=== PATIENT | female | born 1975 | race African-American/Black ===

== ENCOUNTER 2016-09-21 01:08 | Emergency (ER) | payer OTHER ==
[~2016-09-21] VITALS: Ht 160 cm; Wt 131.5 kg
[~2016-09-21 01:08] MED LIST: METO25TA9 PO; ONDA4TAB10 PO; TRAM-48 PO
[2016-09-21 01:15] VITALS: BP 145/90
--- NOTE | 2016-09-21 01:35 | PHYS DOC ---
Past Medical History Past Medical History: Hypertension, Other Additional Past Medical Histor: pseudo-tumor cerebri Past Surgical History: Cholecystectomy, Alcohol Use: None Drug Use: None Adult General Chief Complaint Chief Complaint: SORE THROAT HPI HPI Patient is a 41 year old female who presents with 2 weeks of sore throat; initially with dry cough, fever and chills, and nasal congestion. States most of her symptoms have improved, but she has lingering sore throat. She denies nausea or vomiting, difficulty breathing or swallowing, voice changes. Review of Systems Review of Systems Constitutional: Denies fever or chills [] Eyes: Denies change in visual acuity, redness, or eye pain [] HENT: Denies nasal congestion [] Respiratory: Denies cough or shortness of breath [] Cardiovascular: No additional information not addressed in HPI [] GI: Denies abdominal pain, nausea, vomiting, bloody stools or diarrhea [] : Denies dysuria or hematuria [] Musculoskeletal: Denies back pain or joint pain [] Integument: Denies rash or skin lesions [] Neurologic: Denies headache, focal weakness or sensory changes [] Endocrine: Denies polyuria or polydipsia [] Current Medications Current Medications Current Medications Medications (Trade) Dose Ordered Sig/Sarahi Start Time Stop Time Status Last Admin Dose Admin Dexamethasone (Decadron) 8 mg 1X ONCE 09/21/16 02:15 09/21/16 02:15 DC 09/21/16 02:06 8 MG Allergies Allergies Allergies Coded Allergies Type Severity Reaction Last Updated Verified banana Allergy Intermediate 10/31/13 No metoprolol Allergy Intermediate HIVES 09/21/16 Yes tomato Allergy Intermediate 10/31/13 No tree nut Allergy Intermediate 10/31/13 No Physical Exam Physical Exam Constitutional: Well developed, well nourished, no acute distress, non-toxic appearance. [] HENT: Normocephalic, atraumatic, bilateral TMs normal, oropharynx moist, no oral exudates, nose normal. [] Eyes: PERRLA, EOMI, conjunctiva normal, no discharge. [] Neck: Normal range of motion, no tenderness, supple, no stridor. [] Cardiovascular:Heart rate regular rhythm [] Lungs & Thorax: Bilateral breath sounds clear to auscultation [] Abdomen: Bowel sounds normal, soft, no tenderness. [] Skin: Warm, dry, no erythema, no rash. [] Back: Normal ROM. [] Extremities: No tenderness, ROM intact, no edema. [] Neurologic: Alert and oriented X 3, normal motor function, normal sensory function, no focal deficits noted. [] Psychologic: Affect normal, judgement normal, mood normal. [] Current Patient Data Vital Signs Vital Signs Date Time Temp Pulse Resp B/P (MAP) Pulse Ox O2 Delivery O2 Flow Rate FiO2 09/21/16 01:15 98.9 97 20 145/90 (108) 97 Room Air 98.9 Course & Med Decision Making Course & Med Decision Making Discussed supportive care. Return precautions given. She understands and agrees with plan. Dragon Disclaimer Dragon Disclaimer This electronic medical record was generated, in whole or in part, using a voice recognition dictation system. Departure Departure Impression: Primary Impression: Viral pharyngitis Disposition: HOME, SELF-CARE Condition: STABLE Referrals: ANASTASIIA FUNG MD (PCP) Patient Instructions: Viral and Bacterial Pharyngitis, [id number] Additional Instructions: Take Tylenol or ibuprofen as needed for pain. Drink liquids to stay hydrated. Follow-up with your primary care doctor. Return for any concerns. Ana BANKS MD Sep 21, 2016 01:35
[2016-09-21] MEDS ORDERED: DEXAMETHASONE 4 MG TABLET PO ONE (02:15)
== END 2016-09-21 02:13 | disposition home or self-care (01) ==
LOC: ER 01:08
DX: J02.8 Acute pharyngitis due to other specified organisms (principal); B97.89 Other viral agents as the cause of diseases classified elsewhere; I10 Essential (primary) hypertension; Z90.49 Acquired absence of other specified parts of digestive tract; Z91.018 Allergy to other foods; Z88.8 Allergy status to other drugs, medicaments and biological substances
CPT/HCPCS: 99282; J8540

== ENCOUNTER 2017-02-07 20:20 | Emergency (ER) | payer OTHER ==
[~2017-02-07] VITALS: Ht 170.2 cm; Wt 108.9 kg
[~2017-02-07 20:20] MED LIST changes: +METO-239 PO; -METO25TA9 PO
[2017-02-07] MEDS ORDERED: MECLIZINE HCL 12.5 MG TABLET. PO ONE (21:30)
[2017-02-07 21:38] LABS: BASO # 0.1 x10^3/uL (0.0-0.2); BASO % 1 % (0-3); EOS % 2 % (0-3); HEMATOCRIT 37.1 % (36.0-47.0); HEMOGLOBIN 11.8 g/dL (12.0-15.5); LYMPH # 2.6 x10^3/uL (1.0-4.8); LYMPH % 32 % (24-48); MEAN CORPUSCULAR HEMOGLOBIN 23 pg (25-35); MEAN CORPUSCULAR HGB CONC 32 g/dL (31-37); MEAN CORPUSCULAR VOLUME 71 fL (79-100); MONO % 6 % (0-9); NEUT % 60 % (31-73); PLATELET COUNT 344 x10^3/uL (140-400); RED BLOOD COUNT 5.25 x10^6/uL (3.50-5.40); RED CELL DISTRIBUTION WIDTH 18.6 % (11.5-14.5); WHITE BLOOD COUNT 8.2 x10^3/uL (4.0-11.0)
[2017-02-07 21:49] LABS: CALCIUM 8.8 mg/dL (8.5-10.1); CREATININE 0.8 mg/dL (0.6-1.0); GFR 95.6; NEG OBC SER NEG; POS OBC SER POS; POTASSIUM 3.6 mmol/L (3.5-5.1)
--- NOTE | 2017-02-07 21:50 | PHYS DOC ---
Past Medical History Past Medical History: High Cholesterol, Hypertension, Other Additional Past Medical Histor: pseudo-tumor cerebri Past Surgical History: Cholecystectomy, Alcohol Use: Rarely Drug Use: Marijuana Adult General Chief Complaint Chief Complaint: EARACHE/EAR PAIN HPI HPI Patient is a 41 year old female with his history of hypertension who presents with dizziness described as vertigo for the past 4 days. Symptoms are intermittent worse with position change and head movement. Patient reports nausea denies vomiting. Reports being off balance while walking. Denies falls or laterality of symptoms. Denies headache, blurred vision, extremity weakness or loss of sensation. Denies neck pain. Patient does report fullness in right ureter but denies tinnitus or hearing loss. Of note patient is intensive in the ED, blood pressures 180/115. Patient states her blood pressure typically runs high and that she is missed her blood pressure medication in the past 2 days. Patient is currently on hydrochlorothiazide. Patient is currently on her menstrual period. No other symptoms or complaints.[] Review of Systems Review of Systems Review symptoms as per history of present illness. All other review symptoms are negative. All other systems were reviewed and found to be within normal limits, except as documented in this note. Current Medications Current Medications Current Medications Medications (Trade) Dose Ordered Sig/Sarahi Start Time Stop Time Status Last Admin Dose Admin Lorazepam (Ativan) 1 mg 1X ONCE 02/07/17 23:00 02/07/17 23:01 DC 02/07/17 22:50 1 MG Meclizine HCl (Antivert) 25 mg 1X ONCE 02/07/17 21:30 02/07/17 21:31 DC 02/07/17 21:21 25 MG Allergies Allergies Allergies Coded Allergies Type Severity Reaction Last Updated Verified banana Allergy Intermediate 10/31/13 No metoprolol Allergy Intermediate HIVES 09/21/16 Yes tomato Allergy Intermediate 10/31/13 No tree nut Allergy Intermediate 10/31/13 No Physical Exam Physical Exam Constitutional: Well developed, well nourished, no acute distress, non-toxic appearance. [] HENT: Normocephalic, atraumatic, bilateral external ears normal, right TM, clear effusion, oropharynx moist, no oral exudates, nose normal. [] Eyes: PERRLA, EOMI, segments, horizontal to the right. Fatigues on exam. [] Neck: Normal range of motion, no tenderness, supple, no stridor. [] Cardiovascular:Heart rate regular rhythm, no murmur [] Lungs & Thorax: Bilateral breath sounds clear to auscultation [] Abdomen: Bowel sounds normal, soft, no tenderness, no masses, no pulsatile masses. [] Skin: Warm, dry, no erythema, no rash. [] Back: No tenderness, no CVA tenderness. [] Extremities: No tenderness, no cyanosis, no clubbing, ROM intact, no edema. [] Neurologic: Alert and oriented X 3, no nerves II through XII grossly intact, normal motor function, normal sensory function, no focal deficits noted. Normal [id number], bukxqk-af-argk. [] Psychologic: Affect normal, judgement normal, mood normal. [] Current Patient Data Vital Signs Vital Signs Date Time Temp Pulse Resp B/P (MAP) Pulse Ox O2 Delivery O2 Flow Rate FiO2 02/07/17 21:22 100 20 142/97 (112) 95 02/07/17 21:06 98.4 Room Air 98.4 Lab Values Laboratory Tests Test 02/07/17 21:30 White Blood Count 8.2 x10^3/uL (4.0-11.0) Red Blood Count 5.25 x10^6/uL (3.50-5.40) Hemoglobin 11.8 g/dL (12.0-15.5) L Hematocrit 37.1 % (36.0-47.0) Mean Corpuscular Volume 71 fL (79-100) L Mean Corpuscular Hemoglobin 23 pg (25-35) L Mean Corpuscular Hemoglobin Concent 32 g/dL (31-37) Red Cell Distribution Width 18.6 % (11.5-14.5) H Platelet Count 344 x10^3/uL (140-400) Neutrophils (%) (Auto) 60 % (31-73) Lymphocytes (%) (Auto) 32 % (24-48) Monocytes (%) (Auto) 6 % (0-9) Eosinophils (%) (Auto) 2 % (0-3) Basophils (%) (Auto) 1 % (0-3) Neutrophils # (Auto) 4.9 x10^3uL (1.8-7.7) Lymphocytes # (Auto) 2.6 x10^3/uL (1.0-4.8) Monocytes # (Auto) 0.4 x10^3/uL (0.0-1.1) Eosinophils # (Auto) 0.1 x10^3/uL (0.0-0.7) Basophils # (Auto) 0.1 x10^3/uL (0.0-0.2) Platelet Estimate Adequate (ADEQUATE) Hypochromasia Slight Poikilocytosis Slight Anisocytosis Slight Microcytosis Mod Target Cells Present Ovalocytes Few Sodium Level 139 mmol/L (136-145) Potassium Level 3.6 mmol/L (3.5-5.1) Chloride Level 101 mmol/L (98-107) Carbon Dioxide Level 31 mmol/L (21-32) Anion Gap 7 (6-14) Blood Urea Nitrogen 6 mg/dL (7-20) L Creatinine 0.8 mg/dL (0.6-1.0) Estimated GFR (Cockcroft-Gault) 95.6 BUN/Creatinine Ratio 8 (6-20) Glucose Level 202 mg/dL (70-99) H Calcium Level 8.8 mg/dL (8.5-10.1) Total Bilirubin 0.4 mg/dL (0.2-1.0) Aspartate Amino Transferase (AST) 17 U/L (15-37) Alanine Aminotransferase (ALT) 22 U/L (14-59) Alkaline Phosphatase 96 U/L (46-116) Total Protein 7.6 g/dL (6.4-8.2) Albumin 2.9 g/dL (3.4-5.0) L Albumin/Globulin Ratio 0.6 (1.0-1.7) L Serum Test, Qualitative Negative (NEG) Laboratory Tests 02/07/17 21:30 Laboratory Tests 02/07/17 21:30 EKG EKG [EKG: Normal sinus rhythm, rate 88, no acute ST-T wave changes, QTC 468. Interpretation by me.] Radiology/Procedures Radiology/Procedures [CT head: No acute intracranial disease per radiology report] Course & Med Decision Making Course & Med Decision Making Pertinent Labs and Imaging studies reviewed. (See chart for details) No focal neuro findings to suggest central vertigo. Antihypertensive, meclizine , Ativan and nausea medication symptomatic improvement. Blood pressure also noted to be improved. Will continue treat supportively with PCP follow-up. Precautions reviewed. Courtesy work note provided. Patient verbalizes understanding agreement with discharge instructions prior to departure.. ] Dragon Disclaimer Dragon Disclaimer This electronic medical record was generated, in whole or in part, using a voice recognition dictation system. Departure Departure Impression: Primary Impression: Vertigo Additional Impressions: Nausea Hypertension Disposition: HOME, SELF-CARE Condition: GOOD Referrals: NO PCP (PCP) Patient Instructions: Hypertension, Bmxa-[id number]-Uldi, Nausea, Adult, Ftmn-[id number], Vertigo, Hodb-ke-Ayeg Additional Instructions: You were evaluated in the emergency department for dizziness, nausea and high blood pressure. CT scan and labwork work obtained. The exact cause of your symptoms has not been determined, but is likely related to her urinary inflammation. Please take meclizine milligrams every 6 hours as needed for dizziness and Zofran 4 mg every 6 hours as needed for nausea. Take 1 milligram of Ativan 8 hours as needed for additional relief. Please take home blood pressure medications as prescribed and follow-up with your PCP early next week for reevaluation. In the meantime, if you develop any new or worsening symptoms , please return to the emergency department. Problem Qualifiers JENNY FINN DO Feb 07, 2017 21:50
[2017-02-07 21:55] LABS: ALBUMIN 2.9 g/dL (3.4-5.0); ALBUMIN/GLOBULIN RATIO 0.6 (1.0-1.7); TOTAL BILIRUBIN 0.4 mg/dL (0.2-1.0); TOTAL PROTEIN 7.6 g/dL (6.4-8.2)
[2017-02-07] MEDS ORDERED: LORazepam 1 MG TABLET PO ONE (23:00)
--- NOTE | 2017-02-07 23:10 | RAD ---
CT of the head without contrast History:dizziness. Technique: Standard noncontrast images are obtained. Exposure: One or more of the following individualized dose reduction techniques were utilized for this examination: 1. Automated exposure control 2. Adjustment of the mA and/or kV according to patient size 3. Use of iterative reconstruction technique. Comparison: None Findings: Posterior fossa is unremarkable. No evidence of acute intracranial hemorrhage, mass effect, midline shift or abnormal extra-axial fluid collection. Hovoer-white matter distinction is intact. Ventricles unremarkable and symmetric Visualized orbits are unremarkable. Visualized paranasal sinuses and mastoids are clear. No acute calvarial abnormality Impression: No evidence of acute intracranial abnormality. Electronically signed by: Aftab Rubio MD (02/07/2017 11:07 PM) [place] [id number]
[2017-02-07 23:30] VITALS: BP 127/77
[2017-02-07 23:37] LABS: ANISOCYTOSIS SLIGHT; HYPOCHROMIA SLIGHT; MICROCYTOSIS MOD; PLT ESTIMATE ADEQUATE (ADEQUATE); POIKILOCYTOSIS SLIGHT
[2017-02-07 23:38] LABS: OVALOCYTES FEW; TARGET CELLS PRESENT
--- NOTE | 2017-02-08 06:59 | EKG ---
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
== END 2017-02-08 00:20 | disposition home or self-care (01) ==
LOC: ER 20:20
DX: R42 Dizziness and giddiness (principal); R11.0 Nausea; I10 Essential (primary) hypertension; E78.00 Pure hypercholesterolemia, unspecified; Z91.018 Allergy to other foods; Z88.8 Allergy status to other drugs, medicaments and biological substances
CPT/HCPCS: 36415; 70450; 80053; 84703; 85025; 93005; 99285; J8597